=== PATIENT | female | born 1995 | race Caucasian/White ===

== ENCOUNTER 2016-03-12 02:15 | Inpatient (IN) | payer OTHER ==
[~2016-03-12] VITALS: Ht 170.2 cm; Wt 90.7 kg
[~2016-03-12 02:15] MED LIST: Ibuprofen PO; PREN1TAB73 PO
[2016-03-12] MEDS ORDERED: Lactated Ringer's 1,000 ML IV SCH ×3 (08:33→16:58)
[2016-03-12] MEDS ORDERED: Lactated Ringer's 1,000 ML IV PRN (08:33)
[2016-03-12] MEDS ORDERED: Sodium Chloride LOK Flush 10 mL Syringe IVFLUSH PRN (08:35)
[2016-03-12] MEDS ORDERED: Ondansetron 2 mg/mL 2 mL Inj IVPUSH PRN ×2 (08:35→15:25)
[2016-03-12] MEDS ORDERED: Oxytocin 30 Units/500 mL LR 30 UNITS in IV Premix 1 EACH IV PRN ×2 (08:35→17:00)
[2016-03-12] MEDS ORDERED: diphenhydrAMINE 50 mg Capsule PO PRN (08:35)
[2016-03-12] MEDS ORDERED: Carboprost 250 mCg/mL Inj IM PRN ×2 (08:35→17:00)
[2016-03-12] MEDS ORDERED: Methylergonovine 0.2 mg/mL Inj IM PRN ×2 (08:35→17:00)
[2016-03-12] MEDS ORDERED: Hemorrhage Kit, Post Partum XX ONE ×2 (08:35→17:00)
[2016-03-12] MEDS ORDERED: Oxytocin 10 Unit/mL Inj IM PRN ×2 (08:35→17:00)
[2016-03-12] MEDS ORDERED: fentaNYL-PF 50 mCg/mL 2 mL Inj IVPUSH PRN (08:35)
[2016-03-12] MEDS: Misoprostol 25 mCg/0.25 Tablet VAGINAL SCH ×2 (09:00→12:52)
[2016-03-12 10:20] LABS: Mean Corpuscular Hemoglobin 32.5 pg (27.0-35.0)
[2016-03-12] MEDS ORDERED: fentaNYL 2 mCg/mL-Bupivicaine 0.125% 100 mL Premix EPIDURAL ONE (15:17)
[2016-03-12] MEDS ORDERED: Lactated Ringer's 500 ML IV ONE (15:21)
--- NOTE | 2016-03-12 15:21 | PCM.HPANE ---
Patient Data Surgeon Admitting Provider:Joshua Lomeli MD Attending Provider:Joshua Lomeli MD Primary Care Physician:Joshua Lomeli MD Other Provider:Viridiana Fayingham Anesthesia Reason for Visit Induction INDUCTION Ht/WT & BMI Body Mass Index Allergies Coded Allergies: No Known Allergies (Unverified Allergy, Unknown, 04/23/14) Diabetes History Hx Diabetes?: No MRSA MRSA: No Medications Hypertension Medication: No Home Meds Incl Beta Malini: No Reported Medications Vit/Iron Fumarate/FA ( Vitamin Tablet)1 Each Tablet1 Each PO DAILY 04/23/14 Discontinued Scripts [Ibuprofen] (Motrin)600 MG TABLET No Conflict [id number] Mg PO Q6H PRN For Mild Pain #30 TABLET Ref 1 Prov:Joshua Lomeli MD 04/25/14 History History of ENT Problems?: No Hx of Heart Problems?: No Hx of Respiratory Problem?: No Hx Neurologic Problems?: No Hx of GI Problems?: No Hx of Problems?: No Female Hx: Positive for:: Currently Hx Musculoskeletal Problems?: No Hx of Psycho/Social Problems?: No Hx Surgeries?: Yes Hx Any Other Health Problems?: No Hx Diabetes: No Smoking Status: Unknown if Ever Smoker Stop/Bang Treated for Sleep Apnea?: No Do You Have a CPAP Machine?: No KURT Risk Assessment: Low Risk, <3 Yes Risk Assessment Category Category 1A: Patient has history of documented sleep apnea, and HAS NOT received any narcotic, sedative or anesthesia administration during this stay. Category 1B: Patient has history of documented sleep apnea, and HAS received any narcotic , sedative or anesthesia administration during this stay Category 2: Patient has SUSPECTED Obstructive Sleep Apnea, and HAS received any narcotic , sedative or anesthesia administration during this stay. Category 3: Patient has SUSPECTED Obstructive Sleep Apnea and HAS NOT received narcotic, sedative or anesthesia administration during this stay. Category 4: Outpatient in Procedural Areas with known sleep apnea or who screen positive for High Risk via the STOP/BANG questionnaire. Exam Exam General Appearance: Oriented X3 HEENT/AIRWAY: MP 2 Lungs: Normal Air Movement Heart: Regular Rate/Rhythm Meds/Labs/Diagnostics Admission Meds Current Medications Misoprostol (Cytotec) 25 mcg Q4H VAGINAL Last administered on 03/12/16t 12:52; Start 03/12/16 at 08:35 Labs Test 03/12/16 09:15 White Blood Count 7.9th/mm3 (3.8-10.1) Red Blood Count 4.03mil/mm3 (3.90-5.20) Hemoglobin 13.1g/dL (12.0-15.6) Hematocrit 38.3% (35.0-46.0) Mean Corpuscular Volume 95.0fL (81-100) Mean Corpuscular Hemoglobin 32.5pg (27.0-35.0) Mean Corpuscular Hemoglobin Concent 34.2% (32.0-37.0) Red Cell Distribution Width 13.6% (12.3-15.4) Platelet Count 158bil/L (150-400) Plan Impression Patient chart reviewed, patient interviewed and anesthestic plan with risks, benefits, and alternatives discussed, and informed consent obtained. ASA Physical Status: ASA2 Mod Systemic Disease Anesthetic Plan: Epidural Bene/Risks/Altern/Consents: Yes HP Complete Prior to Induction: Yes Aj Viveros MD Mar 12, 2016 15:21
[2016-03-12] MEDS ORDERED: Phenylephrine/NS-PF 100 mCg/mL 5 mL Syringe IVPUSH PRN (15:25)
[2016-03-12] MEDS ORDERED: EPHEDrine Sulfate 50 mg/mL Inj IVPUSH PRN (15:25)
[2016-03-12] MEDS ORDERED: fentaNYL 2 mCg/mL-Bupiv 0.125% 100 ML EPIDURAL SCH (15:25)
[2016-03-12] MEDS ORDERED: Atropine 1 mg/10 mL (Code) Syringe IVPUSH PRN (15:25)
[2016-03-12] MEDS ORDERED: Sodium Chloride LOK Flush 10 mL Syringe IVFLUSH SCH (16:30)
[2016-03-12] MEDS ORDERED: LANOlin HPA 7 Gm Ointment TOPICAL PRN (17:00)
[2016-03-12] MEDS ORDERED: Benzocaine (Dermoplast) 20% 60 Gm Spray TOPICAL PRN (17:00)
[2016-03-12] MEDS ORDERED: Witch Hazel-Glycerin Pads TOPICAL PRN (17:00)
[2016-03-12] MEDS ORDERED: HYDROcodone-APAP 5-325 mg Tablet PO PRN (17:00)
--- NOTE | 2016-03-12 20:15 | PROCED ---
[address] [address] PROCEDURE NOTE PATIENT: JESSY NARVAEZ : 1995 MR#: [id number] ADMIT: 03/12/2016 JOB ID: [id number] DATE OF SERVICE: 03/12/2016 at 4:36 p.m. POSTOPERATIVE DIAGNOSIS(ES): PREOPERATIVE DIAGNOSIS(ES): SURGEON: Joshua Lomeli MD This 21-year-old, G2, P1, female at 41-1/2 weeks estimated gestational age delivered a vigorous female of unknown weight at this time by normal vaginal delivery. The Apgars were 8 and 9. The patient presented for induction due to post dates and received a dose of Cytotec. She was not twila until about 1 p.m. today and then her contractions took off and she required an epidural. No antibiotics were required. She progressed rapidly to complete by 4:06 p.m. The nurse held off pushing until I arrived and she pushed over approximately 20-25 minutes. She was a very effective pusher and delivered across an intact perineum. There were no vaginal tears or cervical tears. The heart monitoring strip was reactive and reassuring throughout. There were no other complications. Estimated blood loss was 300 cc. The patient's uterus was firm following delivery, and I did not order Pitocin immediately but put it on order in case it was needed. The patient's instrument counts were correct x2. She was in excellent condition following delivery.
[2016-03-13 06:38] LABS: Mean Corpuscular Hemoglobin 32.5 pg (27.0-35.0); Mean Corpuscular Volume 96.3 fL (81-100)
--- NOTE | 2016-03-13 14:19 | PCM.DC.OB ---
Obstetrical Discharge Summary Date of Service Mar 13, 2016 Date of hospital admission Mar 12, 2016 at 07:14 Date of Discharge: Mar 13, 2016 Providers Admitting Physician: Joshua Villa MD Primary Care Physician: Joshua Villa MD Attending Physician: Joshua Villa MD Problems: (1) Status post normal vaginal delivery Status: Acute ICD Code: V13.29 Consultations none Invasive procedures NVD Date of Procedure: Mar 12, 2016 Hospital Course: Induction started and went well. NVD. No complications. Recovered in excellent fashion. Vit/Iron Fumarate/FA ( Vitamin Tablet) 1 Each Tablet 1 EACH PO DAILY (Reported) Discontinued Medications ([Ibuprofen]) 600 MG TABLET 600 MG PO Q6H PRN PRN For Mild Pain Prescribed by: JOSHUA VILLA MD Follow-up plan F/u in 8 weeks. Discharge Diet: No restrictions Discharge Activity-General: Pelvic Rest for 6 weeks, No lifting >15 pounds for 2 weeks Joshua Villa MD Mar 13, 2016 14:19
--- NOTE | 2016-03-13 14:21 | PCM.DIOB ---
Obstetrical Disch Instruction Date of Service: Mar 13, 2016 Dates of Hospitalization Date of Hospital Admission Mar 12, 2016 at 07:14 Providers Admitting Physician: Joshua Lomeli MD Primary Care Physician: Joshua Lomeli MD Attending Physician: Joshua Lomeli MD Discharge Diagnosis Problems: (1) Status post normal vaginal delivery Status: Acute ICD Code: V13.29 Diet Discharge Diet: No restrictions Activity Discharge Activity-General: Pelvic Rest for 6 weeks, Be up and about, Balance rest and activity, Activity as pain allows, Activity as energy allows, No lifting >15 pounds for 2 weeks Dressing and Incisional Care Hygiene: May shower, Perineal care, Sitz bath, Dermoplast spray, Witch Berta pads Follow Up Plan Follow-up Provider (F9): Joshua Lomeli MD Follow-up appointment: Weeks (8) Call your provider for: Fever or Chills, Heavy vaginal bleeding, Excessive constipation, Red painful breasts Joshua Lomeli MD Mar 13, 2016 14:21
[2016-03-13] MEDS ORDERED: IBUP800T28 PO (14:22)
[2016-03-13 14:55] VITALS: BP 111/59; PULSE 72; RESP 16
== END 2016-03-13 17:00 | disposition home or self-care (01) | DRG 560 ==
LOC: FBC 07:14
PROVIDERS: ADMIT Family Medicine; ATTEND Family Medicine
PROC: 10E0XZZ Delivery of Products of Conception, External Approach (ICD-10-PCS; principal; 2016-03-12)
PROC: 3E0P7GC Introduction of Other Therapeutic Substance into Female Reproductive, Via Natural or Artificial Opening (ICD-10-PCS; 2016-03-12)
DX: O48.0 Post-term pregnancy (principal); Z3A.41 41 weeks gestation of pregnancy; Z37.0 Single live birth